=== PATIENT | female | born 1980 | race Two or more races ===

== ENCOUNTER → 2017-03-01 | Outpatient (CLI) | payer BC, MEDICAID ==
--- NOTE | 2017-03-01 11:26 | RADIOLOGY REPORT (SQ) ---
EXAM DESCRIPTION: ELBOW LEFT AP/LATERAL COMPLETED DATE/TIME: 03/01/2017 11:13 am REASON FOR STUDY: INJURY TO LEFT ELBOW REGION S59.902A UNSPECIFIED INJURY OF LEFT ELBOW, INITIAL EN COUNTER COMPARISON: None. NUMBER OF VIEWS: Two views. TECHNIQUE: AP and lateral radiographic images acquired of the left elbow. LIMITATIONS: None. FINDINGS: MINERALIZATION: Normal. BONES: No acute fracture or dislocation. No worrisome bone lesions. JOINT: No effusion. SOFT TISSUES: No soft tissue swelling. No foreign body. OTHER: No other significant finding. IMPRESSION: NEGATIVE STUDY OF THE LEFT ELBOW. NO RADIOGRAPHIC EVIDENCE OF ACUTE INJURY. TECHNICAL DOCUMENTATION: JOB ID: [id number] [employer]- All Rights Reserved
== END ==
LOC: RAD 10:58
PROVIDERS: ATTEND Emergency Medicine
DX: S59.902A Unspecified injury of left elbow, initial encounter (principal); X58.XXXA Exposure to other specified factors, initial encounter

== ENCOUNTER → 2019-05-18 | Outpatient (CLI) | payer OTHER, MEDICAID ==
--- NOTE | 2019-05-18 14:10 | WOMENS IMAGING REPORT ---
EXAM DESCRIPTION: BILAT SCREENING MAMMO W/CAD COMPLETED DATE/TIME: 05/18/2019 8:34 am REASON FOR STUDY: Z12.31 SCREENING [id number] ENCNTR SCREEN MAMMOGRAM FOR MALIGNANT NEOPLASM OF BR E COMPARISON: Baseline examination. EXAM PARAMETERS: Standard craniocaudal and mediolateral oblique views of each breast recorded using digital acquisition. Read with the assistance of CAD. .[facility] - [employer] Sme Version 9.2 LIMITATIONS: None. FINDINGS: RIGHT BREAST MASSES: No suspicious masses. CALCIFICATIONS: No new or suspicious calcifications. ARCHITECTURAL DISTORTION: None. DEVELOPING DENSITY: None. ASYMMETRY: None noted. OTHER: No other significant findings. LEFT BREAST MASSES: In the upper-outer quadrant of the breast, 7.1 cm from the nipple, posterior depth, well-cir cumscribed nodule. In the medial aspect of the breast, 4.4 cm from the nipple, mid depth, a nodule. This finding is bes t seen on the LCC view. CALCIFICATIONS: No new or suspicious calcifications. ARCHITECTURAL DISTORTION: None. DEVELOPING DENSITY: None. ASYMMETRY: None noted. OTHER: No other significant findings. IMPRESSION: 1. Left breast nodules. 0 Incomplete: Needs Additional Imaging Evaluation and/or prior Mammograms for Comparison. BREAST DENSITY: c. The breasts are heterogeneously dense, which may obscure small masses. BIRAD: ASSESSMENT: 0 Incomplete: Needs Additional Imaging Evaluation and/or prior Mammograms for C omparison. RECOMMENDATION: 1. Special view mammogram Left breast: digital tomosynthesis (preferable) or spot c ompression views, true lateral. Ultrasound. The patient will be contacted for additional imaging. COMMENT: The patient has been notified of the results by letter per MQSA requirements. Additional no tification policies are in place for contacting patient with suspicious or incomplete findings. Quality ID #225: The [employer] recommends an annual screening mammogram for women aged 40 years or over. This facility utilizes a reminder system to ensure that all patients receive reminder letters, and/or direct phone calls for appointments. This includes reminders for routine scr eening mammograms, diagnostic mammograms, or other Breast Imaging Interventions when appropriate. Th is patient will be placed in the appropriate reminder system. TECHNICAL DOCUMENTATION: FINDING NUMBER: (1) ASSESSMENT: (1) JOB ID: [id number] [employer]- All Rights Reserved Reading location - IP/workstation name: [email or web address]
== END ==
LOC: WI 08:01
PROVIDERS: ATTEND Nurse Practitioner Family
DX: Z12.31 Encounter for screening mammogram for malignant neoplasm of breast (principal)
CPT/HCPCS: 77067

== ENCOUNTER → 2019-05-27 | Outpatient (CLI) | payer MEDICAID, OTHER ==
--- NOTE | 2019-05-27 12:31 | WOMENS IMAGING REPORT ---
EXAM DESCRIPTION: 3D DX MAMMO LEFT UNILAT; U/S BREAST UNILAT LIMITED COMPLETED DATE/TIME: 05/27/2019 9:37 am; 05/27/2019 10:06 am REASON FOR STUDY: N63.21; N63.21 LEFT BREAST N63.21 UNSPECIFIED LUMP IN THE LEFT BREAST, UPPER OUTE R QUAD COMPARISON: 05/18/2019. EXAM PARAMETERS: True lateral and spot compression MLO and CC images acquired with tomosynthesis. LIMITATIONS: None. FINDINGS: BREAST LATERALITY: left MASSES: Round circumscribed nodule in the upper-outer breast. Smooth margins. CALCIFICATIONS: No new or suspicious calcifications. ARCHITECTURAL DISTORTION: None. DEVELOPING DENSITY: None. ASYMMETRY: None noted. OTHER: No other significant findings. BREAST ULTRASOUND: TECHNIQUE: Static and dynamic grayscale images acquired of the left breast in the specific areas of c linical/mammographic concern. Selected color Doppler images recorded. ELASTOGRAPHY PERFORMED: No. LIMITATIONS: None. FINDINGS: MASS: In the upper-outer breast, 1- 2 o'clock location, there is a 7 x 9 mm cyst. Smooth margins. N o internal echoes. Distal acoustic enhancement. There is also a smaller cyst in the 10 -11 o'clock location measuring 4 mm. No solid mass identified. Normal glandular tissue. ELASTOGRAPHY CHARACTERISTICS: Not applicable. OTHER: No other significant finding. IMPRESSION: Circumscribed nodule in the upper-outer left breast secondary to a simple cyst. No eloisa d mass or suspicious mammographic or sonographic findings. BREAST DENSITY: c. The breasts are heterogeneously dense, which may obscure small masses. BIRAD: ASSESSMENT: 2 Benign findings. RECOMMENDATION: RECOMMENDED FOLLOW UP: Birads 1 or 2: The patient should resume routine screening . SPECIFIC INTERVENTION/IMAGING/CONSULTATION RECOMMENDED:No additional intervention/ imaging/consultati on needed at this time. COMMUNICATION:The imaging findings were not discussed with the patient. Her referring provider has be en notified of the findings. COMMENT: The patient has been notified of the results by letter per MQSA requirements. Additional no tification policies are in place for contacting patient with suspicious or incomplete findings. Quality ID #225: The [employer] recommends an annual screening mammogram for women aged 40 years or over. This facility utilizes a reminder system to ensure that all patients receive reminder letters, and/or direct phone calls for appointments. This includes reminders for routine scr eening mammograms, diagnostic mammograms, or other Breast Imaging Interventions when appropriate. Th is patient will be placed in the appropriate reminder system. TECHNICAL DOCUMENTATION: FINDING NUMBER: (1) ASSESSMENT: (1) JOB ID: [id number] [employer]- All Rights Reserved Reading location - IP/workstation name: [email or web address]
== END ==
LOC: WI 09:14
PROVIDERS: ATTEND Nurse Practitioner Family
DX: N63.21 Unspecified lump in the left breast, upper outer quadrant (principal)
CPT/HCPCS: 76642

== ENCOUNTER 2019-11-24 03:04 | Observation (INO) | payer BC, OTHER ==
[2019-11-24 03:32] LABS: ABSOLUTE BASOPHILS # (AUTO) 0.1 10^3/uL (0.0-0.2); ABSOLUTE EOSINOPHILS # (AUTO) 0.4 10^3/uL (0.0-0.6); ABSOLUTE LYMPHOCYTES (AUTO) 1.3 10^3/uL (0.5-4.7); ABSOLUTE MONOCYTES (AUTO) 0.5 10^3/uL (0.1-1.4); ABSOLUTE NEUT (AUTO) 11.6 10^3/uL (1.7-8.2); BASOPHILS % (AUTO) 0.4 % (0-2); EOSINOPHILS % (AUTO) 2.6 % (0-6); HEMATOCRIT 41.2 % (36.0-47.0); HEMOGLOBIN 14.7 g/dL (12.0-15.5); LYMPHOCYTES % (AUTO) 9.6 % (13-45); MEAN CORPUSCULAR HEMOGLOBIN 30.8 pg (27.0-33.4); MEAN CORPUSCULAR HGB CONC 35.6 g/dL (32.0-36.0); MEAN CORPUSCULAR VOLUME 87 fl (80-97); MONOCYTES % (AUTO) 3.6 % (3-13); PLATELET COUNT 294 10^3/uL (150-450); RED BLOOD COUNT 4.76 10^6/uL (3.72-5.28); RED CELL DISTRIBUTION WIDTH 12.1 % (11.5-14.0); SEGMENTED NEUTROPHILS % (AUTO) 83.8 % (42-78); TOTAL CELLS COUNTED % (AUTO) 100 %; WHITE BLOOD COUNT 13.9 10^3/uL (4.0-10.5)
[2019-11-24] MEDS ORDERED: ONDANSETRON HCL INJ/PF 4 MG/2 ML SDV IV ONE (03:45)
[2019-11-24] MEDS ORDERED: NORMAL SALINE 1000 ML 1,000 ML IV ONE (03:45)
[2019-11-24] MEDS ORDERED: MORPHINE SULFATE 10 MG/ML INJ IV ONE (03:45)
[2019-11-24 03:46] LABS: ALBUMIN 5.2 g/dL (3.5-5.0); ALKALINE PHOSPHATASE 91 U/L (38-126); ANION GAP 6 (5-19); ASPARTATE AMINO TRANSFERASE 28 U/L (14-36); BILIRUBIN,TOTAL 0.5 mg/dL (0.2-1.3); BLOOD UREA NITROGEN 11 mg/dL (7-20); CALCIUM 9.8 mg/dL (8.4-10.2); CARBON DIOXIDE 28 mmol/L (22-30); CHLORIDE 103 mmol/L (98-107); GLUCOSE 135 mg/dL (75-110); POTASSIUM 4.3 mmol/L (3.6-5.0); TOTAL PROTEIN 8.5 g/dL (6.3-8.2)
--- NOTE | 2019-11-24 03:46 | ER Document Report ---
ED GI/ - General Chief Complaint: Abdominal Pain Stated Complaint: ABDOMINAL PAIN Time Seen by Provider: 11/24/19 03:39 Primary Care Provider: DEMETRICE MUHAMMAD FNP-C [Primary Care Provider] - Follow up as needed Notes: Patient is a 39-year-old female that comes emergency department for chief complaint of lower abdominal pain. Pain is on both sides. She states pain is started at about 6 PM and was sharp and painful, she states pain has only worsened until she could not bear it anymore. She reports nausea but she denies vomiting. She denies flank pain. She denies dysuria, fever/chills, vaginal bleeding or discharge, or any other symptoms at this time. She states she has had a "tummy tuck" but denies abdominal surgeries otherwise. She states she was told once in the past that they thought she passed a kidney stone but this was never seen on imaging. She takes no daily prescribed medications. TRAVEL OUTSIDE OF THE [place] IN LAST 30 DAYS: No - Related Data Allergies/Adverse Reactions: No Known Allergies Allergy (Unverified 04/05/16 00:39) Past Medical History - General Information source: Patient - Social History Smoking Status: Current Every Day Smoker Frequency of alcohol use: Rare Family History: Reviewed & Not Pertinent Patient has suicidal ideation: No Patient has homicidal ideation: No Past Surgical History: Reports: Hx Cholecystectomy Review of Systems - Review of Systems Constitutional: No symptoms reported EENT: No symptoms reported Cardiovascular: No symptoms reported Respiratory: No symptoms reported Gastrointestinal: See HPI Genitourinary: See HPI Female Genitourinary: No symptoms reported Musculoskeletal: No symptoms reported Skin: No symptoms reported Hematologic/Lymphatic: No symptoms reported Neurological/Psychological: No symptoms reported Physical Exam - Vital signs Vitals: Temp Pulse Resp BP Pulse Ox 97.5 F 88 20 118/84 100 11/24/19 03:07 11/24/19 03:07 11/24/19 03:07 11/24/19 03:07 11/24/19 03:07 - Notes Notes: GENERAL: Patient restless, has difficulty holding still, appears to be in pain HEAD: Normocephalic, atraumatic. EYES: Pupils equal, round, and reactive to light. Extraocular movements intact. ENT: Oral mucosa moist, tongue midline. Oropharynx unremarkable. Airway patent. NECK: Full range of motion. Supple. Trachea midline. No lymphadenopathy. LUNGS: Clear to auscultation bilaterally, no wheezes, rales, or rhonchi. No respiratory distress. Non-tender chest wall. HEART: Regular rate and rhythm. No murmur ABDOMEN: Patient has pain in the general lower abdomen on both sides. There is no particular/focal area of pain. No rigidity or distention. Bowel sounds present. GENITOURINARY: Deferred EXTREMITIES: Moves all 4 extremities spontaneously. No edema, normal radial and dorsalis pedis pulses bilaterally. No cyanosis. BACK: No CVA tenderness noted. No cervical, thoracic, lumbar midline t enderness. No saddle anesthesia, normal distal neurovascular exam. Moves all extremities in full range of motion. NEUROLOGICAL: Alert and oriented x3. Normal speech. Cranial nerves II through XII grossly intact. Strength 5/5 in all extremities. PSYCH: Slightly agitated SKIN: Warm, dry, normal turgor. No rashes or lesions noted. Course - Re-evaluation Re-evalutation: 11/24/19 Patient is initially very uncomfortable, has difficulty holding still. She has generalized lower abdominal tenderness without any particular area of guarding. I discussed with patient. Because of her history of kidney stones, sudden onset of severe pain, and initial appearance I feel that it is slightly more likely that she is passing a kidney stone. She does have leukocytosis at 13.9 with elevation of neutrophils, no bandemia. Chemistry unremarkable. Urinalysis unfortunately still pending. Proceeding with noncontrast CT scan to make sure this is not a passing ureterolithiasis versus acute abdomen. Radiologist called, she states she believes this is early developing acute appendicitis with enlarged appendix and surrounding stranding. There is no passing ureterolithiasis, therefore I feel this is acute appendicitis. Patient has been kept n.p.o. since 1930 last night, she is comfortable now after morphine, giving IV fluids, Zosyn, will contact surgery. Patient states understanding and agreement. 11/24/19 05:[address] Rivero, general surgery on-call, he recommends Zosyn, n.p.o., IVF, and he will see the patient for acceptance. Dr. Rivero evaluated the patient and accepted the patient to surgical service. - Vital Signs Vital signs: Temp Pulse Resp BP Pulse Ox 97.5 F 88 20 118/84 100 04/15/20 03:07 11/24/19 03:07 11/24/19 03:07 11/24/19 03:07 11/24/19 03:07 - Laboratory Result Diagrams: 11/24/19 03:25 11/24/19 03:25 Laboratory results interpreted by me: 11/24/19 11/24/19 03:25 03:25 WBC 13.9 H Lymph % (Auto) 9.6 L Absolute Neuts (auto) 11.6 H Seg Neutrophils % 83.8 H Glucose 135 H Total Protein 8.5 H Albumin 5.2 H Discharge - Discharge Clinical Impression: Lower abdominal pain Acute appendicitis Qualifiers: Acute appendicitis type: with generalized peritonitis Appendicitis gangrene presence: without gangrene Appendicitis perforation presence: unspecified whether perforation present Appendicitis abscess presence: without abscess Qualified Code(s): K35.20 - Acute appendicitis with generalized peritonitis, without abscess Condition: Stable Disposition: ADMITTED OBSERVATION Admitting Provider: Surgicalist Unit Admitted: Surgical Floor Referrals: DEMETRICE MUHAMMAD FNP-C [Primary Care Provider] - Follow up as needed
--- NOTE | 2019-11-24 05:30 | RADIOLOGY REPORT (SQ) ---
CT ABDOMEN AND PELVIS WITHOUT INTRAVENOUS CONTRAST: 11/24/2019 4:24 AM CDT HISTORY: 39-year old with severe lower abdominal pain. COMPARISON: None available TECHNIQUE: Axial contiguous images were obtained from the lung bases to the proximal femurs without oral or intravenous contrast administered. Sagittal and coronal reconstructions were also obtained and reviewed. This exam was performed according to our departmental dose-optimization program, which includes automated exposure control, adjustment of the mA and/or KV according to the patient's size and/or use of iterative reconstruction technique. FINDINGS: The lung bases appear clear without evidence of a focal consolidative airspace opacity or effusions. Evaluation of the solid organs is limited by the lack of intravenous contrast. The visualized hepatic parenchyma is unremarkable. The gallbladder is surgically absent. The spleen, pancreas, and adrenals are normal in size and contour. The kidneys demonstrate no evidence of hydronephrosis. No renal or ureteral calculi are seen. Bladder is minimally distended, but grossly appears unremarkable. The uterus is present. There is a left adnexal hypodensity measuring at least 2.4 x 2.5 cm. This likely represents a physiologic cyst. The stomach is moderately distended. The small bowel loops appear unremarkable. No pericolonic inflammatory stranding is seen. There are scattered colonic diverticula without evidence of definite diverticulitis. The appendix is at the upper limits of normal in size. There is some questionable adjacent inflammatory stranding. This is best seen on image 54 of 92. No periappendiceal fluid collection is seen. There is no evidence of pneumoperitoneum or free fluid. The aorta and IVC appear normal in size. No significantly enlarged lymph nodes are seen in the abdomen or pelvis. Review of the bone show no evidence of any suspicious lytic or blastic lesions. IMPRESSION: No the appendix is at the upper limits of normal in size with some questionable adjacent stranding. This could represent early developing appendicitis in the appropriate clinical setting. No periappendiceal fluid collection is seen.
[2019-11-24] MEDS ORDERED: PIPERACILLIN/TAZOBACTAM 3.375 GM VIAL IV ONE (05:37)
[2019-11-24] MEDS ORDERED: NORMAL SALINE 1000 ML 1,000 ML IV PRN (05:37)
[2019-11-24 06:30] LABS: APPEARANCE,URINE CLEAR; BILIRUBIN,URINE NEGATIVE (NEGATIVE); COLOR,URINE YELLOW; GLUCOSE, URINE NEGATIVE (NEGATIVE); KETONES,URINE NEGATIVE (NEGATIVE); LEUKOCYTE ESTERASE,URINE NEGATIVE (NEGATIVE); NITRITE,URINE NEGATIVE (NEGATIVE); PROTEIN,URINE NEGATIVE (NEGATIVE); URINE SPECIFIC GRAVITY 1.009; UROBILINOGEN,URINE NEGATIVE mg/dL (<2.0)
--- NOTE | 2019-11-24 06:34 | PDOC H&P ---
History of Present Illness Admission Date/PCP: KARLY BURK Patient complains of: Lower abdominal pains History of Present Illness: MICHAEL SOUTH is a 39 year old female who suddenly developed lower abdominal pains last night around 6PM associated with nausea. She went to ED around 2 AM this morning where a CT scan of the abdomen was done which showed early acute appendicitis. Her white count slightly elevated. She denies any fever nor chills diarrhea nor constipation. Past Surgical History Past Surgical History: Reports: Cholecystectomy, Other - section and abdominoplasty Social History Smoking Status: Current Every Day Smoker Family History Family History: Reviewed & Not Pertinent Parental Family History Reviewed: Yes - Mother with diabetes Children Family History Reviewed: No Sibling(s) Family History Reviewed.: No Medication/Allergy Home Medications: Famotidine [Pepcid 20 mg Tablet] 20 mg PO BID #20 tablet 04/05/16 Ondansetron [Zofran Odt 4 mg Tablet] 1 - 2 tab PO Q4H PRN #20 tab.rapdis 04/05/16 Allergies/Adverse Reactions: No Known Allergies Allergy (Unverified 04/05/16 00:39) Review of Systems Constitutional: PRESENT: as per HPI Gastrointestinal: PRESENT: abdominal pain - Lower abdomen, nausea Physical Exam Vital Signs: Temp Pulse Resp BP Pulse Ox 97.5 F 88 20 118/84 100 11/24/19 03:07 11/24/19 03:07 11/24/19 03:07 11/24/19 03:07 11/24/19 03:07 Intake & Output 11/22/19 11/23/19 11/24/19 06:59 06:59 06:59 Intake Total 1000 Balance 1000 Weight 64.1 kg General appearance: PRESENT: mild distress Eye exam: PRESENT: conjunctiva pink Mouth exam: PRESENT: moist Neck exam: PRESENT: full ROM Cardiovascular exam: PRESENT: RRR Pulses: PRESENT: normal radial pulses Vascular exam: PRESENT: normal capillary refill GI/Abdominal exam: PRESENT: soft, tenderness - Right lower quadrant. No peritoneal signs Rectal exam: PRESENT: deferred Neurological exam: PRESENT: alert, oriented to person, oriented to place, orien merced to time, oriented to situation Psychiatric exam: PRESENT: appropriate affect Skin exam: PRESENT: normal color, warm Results Laboratory Results: 11/24/19 03:25 11/24/19 03:25 11/24/19 11/24/19 11/24/19 03:25 03:25 03:25 WBC 13.9 H RBC 4.76 Hgb 14.7 Hct 41.2 MCV 87 MCH 30.8 MCHC 35.6 RDW 12.1 Plt Count 294 Seg Neutrophils % 83.8 H Sodium 137.4 Potassium 4.3 Chloride 103 Carbon Dioxide 28 Anion Gap 6 BUN 11 Creatinine 0.59 Est GFR ( Amer) > 60 Glucose 135 H Calcium 9.8 Total Bilirubin 0.5 AST 28 Alkaline Phosphatase 91 Total Protein 8.5 H Albumin 5.2 H Lipase 67.0 Serum HCG, Qual NEGATIVE Impressions: Abdomen/Pelvis CT 11/24/19 04:35 IMPRESSION: No the appendix is at the upper limits of normal in size with some questionable adjacent stranding. This could represent early developing appendicitis in the appropriate clinical setting. No periappendiceal fluid collection is seen. Assessment & Plan - Diagnosis (1) Acute appendicitis Qualifiers: Acute appendicitis type: with generalized peritonitis Appendicitis gangrene presence: without gangrene Appendicitis perforation presence: unspecified whether perforation present Appendicitis abscess presence: without abscess Qualified Code(s): K35.20 - Acute appendicitis with generalized peritonitis, without abscess Is this a current diagnosis for this admission?: Yes - Time Time Spent: 30 to 50 Minutes - Inpatient Certification Medical Necessity: Need For IV Fluids, Need for Pain Control, Need for IV Antibiotics, Need for Surgery - Plan Summary Plan Summary: 39-year-old female status post laparoscopic cholecystectomy, 2 sections and abdominoplasty about 9 years ago. She developed sudden lower abdominal pains at 6 PM last night associated with nausea. She went to ED at [address] scan showed early acute appendicitis. Her white count is slightly elevated to 13.5. She denies any chills nor fever. Plans: Start IV antibiotics For laparoscopic appendectomy today
[2019-11-24] MEDS ORDERED: DEXTROSE 50%-WATER 25 GM/50 ML DISP.SYRIN IV PRN ×2 (07:45)
[2019-11-24] MEDS ORDERED: GLUCAGON,HUMAN RECOMB 1 MG INJ SUBCUT PRN (07:45)
[2019-11-24] MEDS ORDERED: DEXTROSE 5%-LACTATED RINGERS 1,000 ML IV PRN (07:45)
[2019-11-24] MEDS ORDERED: DEXTROSE 40% GEL 15 GM TUBE PO PRN ×2 (07:45)
[2019-11-24] MEDS ORDERED: ONDANSETRON HCL INJ/PF 4 MG/2 ML SDV IV PRN (07:45)
[2019-11-24] MEDS ORDERED: MORPHINE SULFATE 10 MG/ML INJ IV PRN ×2 (07:45→13:13)
[2019-11-24] MEDS ORDERED: FAMOTIDINE INJ/PF 20 MG/2 ML SDV IV SCH (10:00)
[2019-11-24] MEDS ORDERED: BUPIVACAINE HCL 0.25 % INJ/PF (2.5 MG/1 ML) 30 ML VIAL ONE (11:15)
[2019-11-24] MEDS ORDERED: GLYCOPYRROLATE 1 MG/5 ML VIAL ONE (11:19)
[2019-11-24] MEDS ORDERED: NEOSTIGMINE METHYLSULFATE 10 MG/10 ML VIAL ONE (11:19)
[2019-11-24] MEDS ORDERED: LIDOCAINE 2% INJ-PF (20 MG/ML) 10 ML AMPUL ONE (11:34)
[2019-11-24] MEDS ORDERED: DEXAMETHASONE SOD PHOSPHATE INJ 4 MG/1 ML VIAL ONE (11:34)
[2019-11-24] MEDS ORDERED: FENTANYL CITRATE INJ/PF 100 MCG/2 ML AMPUL ONE (11:34)
[2019-11-24] MEDS ORDERED: MIDAZOLAM 2 MG/2 ML INJ ONE (11:34)
[2019-11-24] MEDS ORDERED: PROPOFOL INJ 200 MG/20 ML VIAL IV ONE (11:35)
[2019-11-24] MEDS ORDERED: ONDANSETRON HCL INJ/PF 4 MG/2 ML SDV ONE (11:35)
[2019-11-24] MEDS ORDERED: PIPERACILLIN SODIUM/TAZOBACTAM 3.375 GM in NORMAL SALINE 100 ML IV SCH (12:00)
[2019-11-24] MEDS ORDERED: FENTANYL CITRATE INJ/PF 100 MCG/2 ML AMPUL IV PRN ×3 (13:13)
[2019-11-24] MEDS ORDERED: MEPERIDINE HCL/PF INJ 25 MG/1 ML DISP.SYRIN IV PRN (13:13)
[2019-11-24] MEDS ORDERED: DIPHENHYDRAMINE HCL 50 MG/ML VIAL IV PRN (13:13)
[2019-11-24] MEDS ORDERED: OXYCODONE-ACETAMINOPHEN 5-325 MG TABLET PO PRN ×2 (13:13)
[2019-11-24] MEDS ORDERED: PROMETHAZINE HCL INJ 25 MG/1 ML VIAL IV PRN ×2 (13:13)
--- NOTE | 2019-11-24 13:31 | Operative Report ---
Nonrecallable Operative Report DATE OF SURGERY: 11/24/19 PREOPERATIVE DIAGNOSIS: Acute appendicitis POSTOPERATIVE DIAGNOSIS: Mild, early acute appendicitis OPERATION: Laparoscopic appendectomy SURGEON: MARK CAREY ANESTHESIA: GA TISSUE REMOVED OR ALTERED: Appendix COMPLICATIONS: None apparent ESTIMATED BLOOD LOSS: Minimal PROCEDURE: Drains/implants: None. Procedure detail: After informed consent was obtained, the patient was brought to the operating room and laid in the supine position. The area of the abdomen was prepped and draped in a normal sterile fashion. A supraumbilical incision was created with a 15 blade scalpel. Dissection was carried through the subcutaneous tissues using sharp dissection. The linea alba fascia was incised sharply, the abdomen was entered sharply. The balloon trocar was inserted, and pneumoperitoneum was achieved. A suprapubic 5 mm trocar was then placed through a previous scar, under direct laparoscopic visualization. A left lower quadrant trocar was also placed under direct laparoscopic visualization. Atraumatic graspers were placed through the 5 mm ports. The appendix was identified. It was very mildly erythematous. This could be consistent with early acute appendicitis. There was no evidence of perforation. The appendix was retracted anteriorly. The mesoappendix was taken down using the harmonic scalpel. 2 PDS Endoloops were used to secure the base of the appendix. The appendix was then amputated. It was placed into an Endo Catch bag, and pulled out through the supraumbilical incision. The camera was reinserted. The right lower quadrant was inspected. There is no active bleeding. The ovaries were inspected, and appeared grossly normal. The small bowel was inspected in the area of the terminal ileum. No evidence of Meckel's diverticulum was identified. Once this was confirmed, the insufflation gas was vented into a filtered collection apparatus. The 5 mm trochars were removed. The supraumbilical trocar was removed. The supraumbilical fascia was closed using 0 Vicryl suture in [id number] fashion. The overlying skin was closed using 4-0 Vicryl Rapide suture in subcuticular fashion. Dressings were placed, the procedure was concluded. All sponge, instrument, and needle counts were correct x2. Condition: Stable.
[2019-11-24] MEDS ORDERED: HYDROCODONE/ACETAMINOPHEN 10-325 MG TABLET PO PRN (13:33)
[2019-11-24] MEDS: FENTANYL CITRATE INJ/PF 100 MCG/2 ML AMPUL ONE ×3 (14:05→14:15)
[2019-11-24] MEDS ORDERED: IBUPROFEN 800 MG TABLET PO SCH (17:00)
--- NOTE | 2019-11-24 18:56 | PDOC DISCHARGE SUMMARY ---
General - Admit/Disc Date/PCP Admission Date/Primary Care Provider: 11/24/19 06:50 KARLY BURK Discharge Date: 11/24/19 - Discharge Diagnosis Final Diagnosis: Acute appendicitis, nonperforated - Assessment Summary: This is a 39-year-old female admitted to hospital with right lower quadrant pain. She is found to have leukocytosis, and periappendiceal straining on CT scan. Discussion was held with the patient, and appendicitis was chosen as the treatment course. Patient was taken to the operating room where laparoscopic appendectomy was performed. There was a very mild amount of erythema of the appendix, without evidence of perforation. The patient was then taken to the floor in stable condition. She began ambulating and eating a diet. On the afternoon of 11/24/2019, the patient was doing well and had reached maximal hospital benefit. At this time she is medically fit for discharge. - Additional Information Resuscitation Status: Full Code Discharge Diet: As Tolerated Discharge Activity: No Lifting Over 10 Pounds, No Lifting/Push/Pulling Referrals: DEMETRICE MUHAMMAD FNP-C [Primary Care Provider] - Follow up as needed Prescriptions: Hydrocodone/Acetaminophen [Amston 10-325 mg Tablet] 1 tab PO Q6HP PRN #15 tablet PRN Reason: For Pain Home Medications: Ascorbic Acid [Vitamin C 500 mg Tablet] 500 mg PO DAILY 11/24/19 Cholecalciferol (Vitamin D3) [Vitamin D3] 50 mcg PO DAILY 11/24/19 Hydrocodone/Acetaminophen [Amston 10-325 mg Tablet] 1 tab PO Q6HP PRN #15 tablet 11/24/19 Mv-Min/Iron/Folic/Calcium/Vitk [Women's Multivitamin Tablet] 1 each PO DAILY 11/24/19 Crystal-3/Dha/Epa/Fish Oil [Fish Oil 500 mg Softgel] 1 each PO DAILY 11/24/19 Phentermine HCl 37.5 mg PO QAM 11/24/19 Additional Information: Discharge home. Diet as tolerated. Activity: No lifting greater than 10 pounds x 2 weeks. Follow-up with me in 7 to 10 days at [facility]. Amston 10/325 mg p.o. every 6 hours as needed for pain. Okay to shower starting Friday. History of Present Illiness History of Present Illness: MICHAEL SOUTH is a 39 year old female Physical Exam Vital Signs: Temp Pulse Resp BP Pulse Ox 98.2 F 75 17 107/53 L 99 11/24/19 15:48 11/24/19 15:48 11/24/19 15:48 11/24/19 15:48 11/24/19 15:48 Intake & Output 11/23/19 11/24/19 11/25/19 06:59 06:59 06:59 Intake Total 1000 1150 Output Total 10 Balance 1000 1140 Weight 64.1 kg Results Laboratory Results: WBC 13.9 10^3/uL (4.0-10.5) H 11/24/19 03:25 RBC 4.76 10^6/uL (3.72-5.28) 11/24/19 03:25 Hgb 14.7 g/dL (12.0-15.5) 11/24/19 03:25 Hct 41.2 % (36.0-47.0) 11/24/19 03:25 MCV 87 fl (80-97) 11/24/19 03:25 MCH 30.8 pg (27.0-33.4) 11/24/19 03:25 MCHC 35.6 g/dL (32.0-36.0) 11/24/19 03:25 RDW 12.1 % (11.5-14.0) 11/24/19 03:25 Plt Count 294 10^3/uL (150-450) 11/24/19 03:25 Lymph % (Auto) 9.6 % (13-45) L 11/24/19 03:25 Cowley % (Auto) 3.6 % (3-13) 11/24/19 03:25 Eos % (Auto) 2.6 % (0-6) 11/24/19 03:25 Baso % (Auto) 0.4 % (0-2) 11/24/19 03:25 Absolute Neuts (auto) 11.6 10^3/uL (1.7-8.2) H 11/24/19 03:25 Absolute Lymphs (auto) 1.3 10^3/uL (0.5-4.7) 11/24/19 03:25 Absolute Monos (auto) 0.5 10^3/uL (0.1-1.4) 11/24/19 03:25 Absolute Eos (auto) 0.4 10^3/uL (0.0-0.6) 11/24/19 03:25 Absolute Basos (auto) 0.1 10^3/uL (0.0-0.2) 11/24/19 03:25 Seg Neutrophils % 83.8 % (42-78) H 11/24/19 03:25 Sodium 137.4 mmol/L (137-145) 11/24/19 03:25 Potassium 4.3 mmol/L (3.6-5.0) 11/24/19 03:25 Chloride 103 mmol/L (98-107) 11/24/19 03:25 Carbon Dioxide 28 mmol/L (22-30) 11/24/19 03:25 Anion Gap 6 (5-19) 11/24/19 03:25 BUN 11 mg/dL (7-20) 11/24/19 03:25 Creatinine 0.59 mg/dL (0.52-1.25) 11/24/19 03:25 Est GFR ( Amer) > 60 (>60) 11/24/19 03:25 Est GFR (MDRD) Non-Af > 60 (>60) 11/24/19 03:25 Glucose 135 mg/dL (75-110) H 11/24/19 03:25 Calcium 9.8 mg/dL (8.4-10.2) 11/24/19 03:25 Total Bilirubin 0.5 mg/dL (0.2-1.3) 11/24/19 03:25 Direct Bilirubin 0.0 mg/dL (0.0-0.4) 11/24/19 03:25 Neonat Total Bilirubin Not Reportable 11/24/19 03:25 Neonat Direct Bilirubin Not Reportable 11/24/19 03:25 Neonat Indirect Bili Not Reportable 11/24/19 03:25 AST 28 U/L (14-36) 11/24/19 03:25 ALT 27 U/L (<35) 11/24/19 03:25 Alkaline Phosphatase 91 U/L (38-126) 11/24/19 03:25 Total Protein 8.5 g/dL (6.3-8.2) H 11/24/19 03:25 Albumin 5.2 g/dL (3.5-5.0) H 11/24/19 03:25 Lipase 67.0 U/L (23-300) 11/24/19 03:25 Serum HCG, Qual NEGATIVE (NEGATIVE) 11/24/19 03:25 Urine Color YELLOW 11/24/19 06:10 Urine Appearance CLEAR 11/24/19 06:10 Urine pH 7.0 (5.0-9.0) 11/24/19 06:10 Ur Specific Beatrice 1.009 11/24/19 06:10 Urine Protein NEGATIVE mg/dL (NEGATIVE) 11/24/19 06:10 Urine Glucose (UA) NEGATIVE mg/dL (NEGATIVE) 11/24/19 06:10 Urine Ketones NEGATIVE mg/dL (NEGATIVE) 11/24/19 06:10 Urine Blood NEGATIVE (NEGATIVE) 11/24/19 06:10 Urine Nitrite NEGATIVE (NEGATIVE) 11/24/19 06:10 Urine Bilirubin NEGATIVE (NEGATIVE) 11/24/19 06:10 Urine Urobilinogen NEGATIVE mg/dL (<2.0) 11/24/19 06:10 Ur Leukocyte Esterase NEGATIVE (NEGATIVE) 11/24/19 06:10 Urine WBC (Auto) 1 /HPF 11/24/19 06:10 Urine RBC (Auto) 2 /HPF 11/24/19 06:10 Urine Bacteria (Auto) TRACE /HPF 11/24/19 06:10 Squamous Epi Cells Auto 5 /HPF 11/24/19 06:10 Urine Mucus (Auto) RARE /LPF 11/24/19 06:10 Urine Ascorbic Acid NEGATIVE (NEGATIVE) 11/24/19 06:10 Impressions: Abdomen/Pelvis CT 11/24/19 04:35 IMPRESSION: No the appendix is at the upper limits of normal in size with some questionable adjacent stranding. This could represent early developing appendicitis in the appropriate clinical setting. No periappendiceal fluid collection is seen.
[2019-11-24 20:09] VITALS: BP 105/71
== END 2019-11-24 20:00 | disposition home or self-care (01) ==
LOC: ER 03:04 → EH 06:50 → 3W 08:14
PROVIDERS: ATTEND Surgery
DX: K35.80 Unspecified acute appendicitis (principal); F17.200 Nicotine dependence, unspecified, uncomplicated; Z90.49 Acquired absence of other specified parts of digestive tract; Z98.890 Other specified postprocedural states; Z87.442 Personal history of urinary calculi
CPT/HCPCS: 44970; 99285; 96361; 96375; 96365; 36415; 83690; 84703; 85025; 80053; 81001; 88304 ×2; 74176; 00840; G0378; J2250; J1100; J3010; J2270; J2710; J2405; J7121; J7030; J2704; S0028; J3490 ×2; J2543; 840